=== PATIENT | female | born 1950 | race Caucasian/White ===

== ENCOUNTER 2020-07-28 12:50 | Outpatient (CLI) | payer MEDICARE, OTHER, SELFPAY ==
--- NOTE | 2020-07-28 13:08 | US_ITS ---
WS: [id number] RENAL ULTRASOUND URINARY BLADDER ULTRASOUND HISTORY: CKD STAGE 2 COMPARISON: None available. TECHNIQUE: 2-D and color Doppler imaging of the kidney submitted. Right kidney: 10.0 cm x 4.7 cm x 4.8 cm. Normal echogenicity with no hydronephrosis or mass. Left kidney: 10.0 cm x 5.2 cm x 5.4 cm. Normal size kidney with normal echogenicity. No hydronephrosis. Exophytic cyst from the mid kidney me asures 2.1 x 1.5 x 2.1 cm. Aorta: Normal. Urinary Bladder: Normally distended bladder. Complete emptying on the post void examination. US/US renal BI with PV bladder IMPRESSION: 1. No hydronephrosis. 2. Simple cyst LEFT kidney maximum diameter of 2.1 cm. 3. Normal bladder with no post void residual.
== END 2020-07-28 12:51 | disposition home or self-care (01) ==
LOC: RAD 13:03
PROVIDERS: Visit Provider Internal Medicine Nephrology
DX: N18.2 Chronic kidney disease, stage 2 (mild) (principal); N28.1 Cyst of kidney, acquired
CPT/HCPCS: 76770; 76857

== ENCOUNTER → 2025-05-07 15:36 | Outpatient (BNVA) | payer MEDICARE, OTHER, SELFPAY | PROVIDERS: Referring Provider Internal Medicine; Visit Provider Internal Medicine | DX: J96.10 Chronic respiratory failure, unspecified whether with hypoxia or hypercapnia (principal); J84.10 Pulmonary fibrosis, unspecified; I27.20 Pulmonary hypertension, unspecified; U09.9 Post COVID-19 condition, unspecified; Z87.891 Personal history of nicotine dependence; J44.9 Chronic obstructive pulmonary disease, unspecified; J44.1 Chronic obstructive pulmonary disease with (acute) exacerbation | CPT/HCPCS: 99204; Q3014 ==

== ENCOUNTER 2025-05-16 12:23 | Outpatient (CLI) | payer MEDICARE, OTHER, SELFPAY ==
--- NOTE | 2025-05-16 12:45 | CTR_ITS ---
PROCEDURE INFORMATION: Exam: CT Chest Without Contrast, Diagnostic, High Resolution Exam date and time: 05/16/2025 12:44 PM Age: 75 years old Clinical indication: Condition or disease; Lung condition and disease; Pulmonary fibrosis TECHNIQUE: Imaging protocol: Diagnostic computed tomography of the chest without contrast. Exam was performed with high resolution protocol. Radiation optimization: All CT scans at this facility use at least one of these dose optimization techniques: automated exposure control; mA and/or kV adjustment per patient size (includes targeted exams where dose is matched to clinical indication); or iterative reconstruction. COMPARISON: No relevant prior studies available. RADIATION DOSE METRICS: Total DLP (mGy-cm): 2074.93 FINDINGS: Lungs: Mild/moderate parenchymal fibrosis including interlobular and interlobar thickening and mild ground-glass opacities. No pulmonary parenchymal mass. No definite acute infiltrate. Pleural spaces: Unremarkable. No pneumothorax. No pleural effusion. Heart: Unremarkable. No cardiomegaly. No pericardial effusion. Vasculature: Unremarkable. No aortic aneurysm. Lymph nodes: Unremarkable. No enlarged lymph nodes. Bones/joints: Unremarkable. No acute fracture. Soft tissues: Unremarkable. CT/CT chest w/o HI-Res(Pulm Only) IMPRESSION: Mild/moderate chronic fibrosis.
== END 2025-05-16 12:24 | disposition home or self-care (01) ==
LOC: RAD 12:24
PROVIDERS: PCP Internal Medicine; Visit Provider Internal Medicine
DX: J96.10 Chronic respiratory failure, unspecified whether with hypoxia or hypercapnia (principal); J84.10 Pulmonary fibrosis, unspecified
CPT/HCPCS: 71250

== ENCOUNTER 2025-05-30 12:34 | Outpatient (CLI) | payer MEDICARE, OTHER, SELFPAY ==
[2025-05-30 14:47] VITALS: O2SAT 84; O2SAT 90; O2SAT 94
== END 2025-05-30 12:35 | disposition home or self-care (01) ==
PROVIDERS: PCP Internal Medicine; Visit Provider Internal Medicine
DX: J44.9 Chronic obstructive pulmonary disease, unspecified (principal)
CPT/HCPCS: 94760; J7613

== ENCOUNTER → 2025-06-04 13:12 | Outpatient (BNVA) | payer MEDICARE, OTHER, SELFPAY | PROVIDERS: PCP Internal Medicine; Visit Provider Internal Medicine | DX: J96.10 Chronic respiratory failure, unspecified whether with hypoxia or hypercapnia (principal); Z99.81 Dependence on supplemental oxygen; J84.10 Pulmonary fibrosis, unspecified; I27.20 Pulmonary hypertension, unspecified; J45.909 Unspecified asthma, uncomplicated; U09.9 Post COVID-19 condition, unspecified; Z87.891 Personal history of nicotine dependence; J44.9 Chronic obstructive pulmonary disease, unspecified | CPT/HCPCS: 99214; Q3014 ==

== ENCOUNTER 2025-06-27 13:00 | Outpatient (CLI) | payer MEDICARE, OTHER, SELFPAY ==
--- NOTE | 2025-06-27 13:30 | USCV_ITS ---
Nela Vega Age: 75 Gender: F : 1950 Exam Date: 06/27/2025 13:48 Ordering Phys: Gi Patel MD Technologist: Exam Location: [facility] [place] Indication: sob cp BP: 144 / 70 HR: 77 Rhythm: Sinus Technical Quality: Adequate MEASUREMENTS (Male / Female) Normal Values 2D ECHO LV Diastolic Diameter PLAX 3.9 cm 4.2 - 5.9 / 3.9 - 5.3 cm IVS Diastolic Thickness 1.6 cm 0.6 - 1.0 / 0.6 - 0.9 cm IVS Systolic Thickness 1.6 cm LVPW Diastolic Thickness 1.2 cm 0.6 - 1.0 / 0.6 - 0.9 cm LVPW Systolic Thickness 1.9 cm LVOT Diameter 2.2 cm LV Ejection Fraction 2D Teich 60.6 % LV Ejection Fraction MOD 4C 40.2 % LV Ejection Fraction MOD 2C 66.9 % LV Ejection Fraction 2C AL 67.5 % LA Diameter 3.5 cm RA Systolic Volume 4C AL 24.4 ml RA Systolic Volume 4C MOD 23.9 ml Aorta at Sinotubular Diameter 3.3 cm M-MODE LA Ao Ratio MM 0.9 AV Cusp Separation MM 2.2 cm DOPPLER AV Peak Velocity 115.8 cm/s MV Peak Velocity 122.0 cm/s MV Area PHT 4.0 cm squared Mitral E to A Ratio 1.0 TV Peak Velocity 171.0 cm/s TR Peak Velocity 176.0 cm/s TR Peak Gradient 12.4 mmHg TV Peak E Velocity 103.0 cm/s PV Peak Velocity 101.0 cm/s FINDINGS Left Ventricle Normal left ventricular size and systolic function, EF 55%. Mild to moderate concentric left ventricular hypertrophy.no regional wall motion abnormalities. Grade I/IV diastolic dysfunction (abnormal relaxation filling pattern), normal to mildly elevated filling pressures. Right Ventricle Normal right ventricular size and systolic function. Right Atrium Normal right atrial size. Left Atrium Normal left atrial size. IA Septum Normal appearance of the interatrial septum. Mitral Valve No gross abnormalities noted Aortic Valve No gross abnormalities noted Tricuspid Valve No gross abnormalities noted Pulmonic Valve Pulmonic valve not well visualized. Pericardium No pericardial effusion. Aorta Normal aortic annulus size. IVC Inferior vena cava not visualized. CONCLUSIONS Normal left ventricular size and systolic function, EF 55%. Mild to moderate concentric left ventricular hypertrophy.no regional wall motion abnormalities. Grade I/IV diastolic dysfunction (abnormal relaxation filling pattern), normal to mildly elevated filling pressures. Segmental wall motion analysis difficult. No gross abnormalities noted Possibly normal chamber sizes. No pericardial effusion. Technically difficult study because of the poor ultrasonic window. Dr Elian Dey MD [facility] (Electronically Signed) Final Date: 28 June 2025 00:38 S
== END 2025-06-27 13:01 | disposition home or self-care (01) ==
LOC: RAD 13:02
PROVIDERS: PCP Internal Medicine; Visit Provider Internal Medicine
DX: J84.10 Pulmonary fibrosis, unspecified (principal); I42.2 Other hypertrophic cardiomyopathy; I51.89 Other ill-defined heart diseases
CPT/HCPCS: 93306